=== PATIENT | male | born 1970 | race Caucasian/White ===

== ENCOUNTER 2024-08-13 14:31 | Emergency (ER) | payer MEDICAID ==
[2024-08-13] MEDS ORDERED: Sodium Chloride 0.9% 10 ML Syringe FLUSH PRN (15:29)
[2024-08-13] MEDS ORDERED: Sodium Chloride 0.9% 2.5 ML Syringe FLUSH PRN (15:29)
[2024-08-13 16:06] LABS: BASOPHILS ABSOLUTE AUTO 0.06 K/uL (0.00-0.20); BASOPHILS PERCENT AUTO 0.8 % (0.0-1.0); EOSINOPHILS ABSOLUTE AUTO 0.16 K/uL (0.00-0.45); EOSINOPHILS PERCENT AUTO 2.2 % (0.0-6.0); HEMATOCRIT 38.8 % (42.0-52.0); HEMOGLOBIN 13.2 g/dL (14.0-18.0); IMMATURE GRAN ABSOLUTE AUTO 0.02 K/uL (0.00-0.05); IMMATURE GRAN PERCENT AUTO 0.3 % (0.0-0.4); LYMPHOCYTES ABSOLUTE AUTO 1.19 K/uL (1.00-4.80); LYMPHOCYTES PERCENT AUTO 16.6 % (24.0-44.0); MEAN CORPUSCULAR HEMOGLOBIN 30.9 pg (28.0-32.0); MEAN CORPUSCULAR VOLUME 90.9 fL (83.0-99.0); MEAN PLATELET VOLUME 9.2 fL (9.4-12.4); MONOCYTES ABSOLUTE AUTO 0.57 K/uL (0.00-0.80); MONOCYTES PERCENT AUTO 7.9 % (0.0-8.0); NEUTROPHILS ABSOLUTE AUTO 5.18 K/uL (1.80-7.70); NEUTROPHILS PERCENT AUTO 72.2 % (41.0-71.0); PLATELET COUNT,PLT 267 K/uL (150-400); RED BLOOD CELL COUNT 4.27 M/uL (4.52-5.90); WHITE BLOOD CELL COUNT,WBC 7.18 K/uL (3.9-11.3)
[2024-08-13 16:40] LABS: INR 1.02 (0.86-1.11)
[2024-08-13 16:55] LABS: ALBUMIN 3.8 g/dL (3.4-5.0); BILIRUBIN TOTAL 0.8 mg/dL (0.2-1.0); CALCIUM 9.2 mg/dL (8.5-10.1); CARBON DIOXIDE,CO2 19.9 mmol/L (21.0-32.0); CREATININE 5.9 mg/dL (0.8-1.3); EST CRCL DRUG DOSING (CG) 12.92 mL/min; PROTEIN TOTAL,TP 7.5 g/dL (6.4-8.2)
[2024-08-13] MEDS: Aspirin 81 MG Tab.Chew PO ONE (17:16)
[2024-08-13] MEDS ORDERED: Heparin Sodium 5,000 Units/ML Vial IVPUSH ONE (17:20)
[2024-08-13] MEDS: Nitroglycerin 0.4 MG Tab.SL SL ONE ×2 (17:26→17:45)
[2024-08-13] MEDS: Nitroglycerin 2% Oint 1 GM UD Packet TOP ONE (17:56)
[2024-08-13] MEDS: Heparin Sodium 5,000 Units/ML Vial IVPUSH ONE (18:20)
[2024-08-13] MEDS: Heparin Sodium/0.45% NaCl 25,000 UNITS/250 ML BAG IV SCH (18:20)
[2024-08-13 18:36] LABS: AMPHETAMINES SCREEN, URINE NEGATIVE (CUTOFF=500); BARBITURATE SCREEN,URINE NEGATIVE (CUTOFF=200); BENZODIAZEPINES SCREEN,URINE NEGATIVE (CUTOFF=150); BUPRENORPHINE SCREEN,URINE NEGATIVE (CUTOFF=10); METHADONE SCREEN, URINE NEGATIVE (CUTOFF=200); METHAMPHETAMINES SCREEN, URINE NEGATIVE (CUTOFF=500); OXYCODONE SCREEN,URINE NEGATIVE (CUT0FF=100); PCP SCREEN,URINE NEGATIVE (CUTOFF=25); THC SCREEN,URINE 20 NG/ML NEGATIVE (CUTOFF=50)
== END 2024-08-13 21:37 | disposition home or self-care (01) ==
LOC: MW.ED 14:31
DX: I21.4 Non-ST elevation (NSTEMI) myocardial infarction (principal); Z79.890 Hormone replacement therapy; Z79.899 Other long term (current) drug therapy
CPT/HCPCS: 36415; 71045; 71045-26; 80053; 80305-QW; 83690; 83880; 84484; 85025; 85610; 85730; 93005; 93010; 96374; 99285-25; 99291; A9270-GY; J1644